=== PATIENT | female | born 1990 | race Caucasian/White ===

== ENCOUNTER 2016-07-09 15:20 | Emergency (ER) | payer MEDICAID ==
[2016-07-09 15:32] VITALS: TEMP 98.1
--- NOTE | 2016-07-09 15:49 | UCPHY ---
H & P Time Seen by Provider: 07/09/16 15:37 Patient Type: New HPI/ROS: 25-year-old female presents complaining of vaginal cyst on the right for the last several days. She has had 1 before that required drainage. Review of systems As per HPI General no fever no chills no weakness HEENT no eye pain no eye discharge. No eye redness, no sore throat Respiratory no cough, no shortness of breath Cardiac no chest pain, no peripheral edema GI no abdominal pain, no diarrhea, no constipation, no nausea, no vomiting no flank pain, no hematuria, no dysuria Musculoskeletal no myalgias, no joint pain Heme no easy bruising, no easy bleeding Endo no polyuria, no polydipsia Skin positive rashes, no pruritus Neuro no syncope, no dizziness, no headaches Psych is no suicidal ideation, no homicidal ideation Past Medical/Surgical History: A prior vaginal cyst Social History: No alcohol or drug use Smoking Status: Never smoked Physical Exam: 25-year-old female very anxious tearful Alert and oriented in no acute distress nontoxic appearance, afebrile Atraumatic normocephalic Neck no JVD Lungs clear to auscultation, no respiratory distress Heart regular rate and rhythm Extremities no cyanosis clubbing edema External genitalia Large right labial abscess, tender to palpation, fluctuant Constitutional: Initial Vital Signs Temperature (C) 36.7 C 07/09/16 15:30 Heart Rate 96 07/09/16 15:30 Respiratory Rate 18 07/09/16 15:30 Blood Pressure 103/55 L 07/09/16 15:30 O2 Sat (%) 100 07/09/16 15:30 O2 Delivery Mode Room Air Allergies/Adverse Reactions: No Known Allergies Allergy (Unverified 07/09/16 15:30) Home Medications: Medication Instructions Recorded Aviane-28 Tablet 07/09/16 Clindamycin 300 mg PO Q8 #18 cap 07/09/16 Ondansetron Odt [Zofran Odt 4 mg 4 mg PO Q4 PRN #10 tab 07/09/16 (*)] oxyCODONE/APAP 5/325 [Percocet 1 - 2 tab PO Q12H PRN #12 tab 07/09/16 5/325 (*)] Medical Decision Making Procedures: Abscess-procedure note The patient gave verbal consent for drainage of a subcutaneous abscess. Risk of bleeding and pain were explained to the patient. The most fluctuant aspect of the abscess was identified. Local anesthetic lidocaine 1% was used. A scalpel was used to incise the abscess. 30 mL of purulent drainage was expressed. Abscess was irrigated and packed. The patient tolerated procedure well. ED Course/Re-evaluation: Patient seen and evaluated for right labial abscess Patient was extremely anxious initially sobbing and was given diazepam 10 mg p. o. to help her calm down she was then given Percocet 2 p.o. for pain, after approximately 90 minutes she was able to calm down and we were able to perform the procedure. Impression Right labial abscess, bartholins abscess Plan Incision and drainage Wound culture sent Patient started on clindamycin Patient to follow up with gynecology on Monday of next week - Data Points Medications Given: Discontinued Medications Clindamycin (Clindamycin) 300 mg PO EDNOW ONE PRN Reason: Protocol Stop: 07/09/16 18:37 Last Admin: 07/09/16 18:44 Dose: Not Given Clindamycin (Cleocin 150 Mg Prepack#6) 1 btl TAKEHOME EDNOW ONE PRN Reason: Protocol Stop: 07/09/16 18:43 Last Admin: 07/09/16 18:57 Dose: 1 btl Diazepam (Valium) 10 mg PO EDNOW ONE Stop: 07/09/16 16:00 Last Admin: 07/09/16 16:03 Dose: 10 mg Ibuprofen (Motrin) 400 mg PO EDNOW ONE Stop: 07/09/16 16:01 Last Admin: 07/09/16 16:04 Dose: 400 mg Ondansetron HCl (Zofran Odt) 4 mg PO EDNOW ONE Stop: 07/09/16 17:11 Last Admin: 07/09/16 17:12 Dose: 4 mg Ondansetron HCl (Zofran Odt 4 Mg Prepack#2) 1 btl TAKEHOME EDNOW ONE Stop: 07/09/16 18:50 Last Admin: 07/09/16 18:58 Dose: 1 btl Oxycodone/Acetaminophen (Percocet 5/325) 2 tab PO EDNOW ONE Stop: 07/09/16 17:11 Last Admin: 07/09/16 17:12 Dose: 2 tab Oxycodone/Acetaminophen (Percocet 5/325mg Prepack#4) 1 btl TAKEHOME EDNOW ONE Stop: 07/09/16 18:44 Last Admin: 07/09/16 18:58 Dose: 1 btl Tetracaine/Epinephrine/Lidocaine (Lets Soln Topical) 1 ea TP EDNOW ONE Stop: 07/09/16 16:52 Last Admin: 07/09/16 16:50 Dose: 1 ea Tetracaine/Epinephrine/Lidocaine (Lets Soln Topical) 1 ea TP EDNOW ONE Stop: 07/09/16 17:06 Last Admin: 07/09/16 17:08 Dose: 1 ea Departure - Departure Disposition: Home, Routine, Self-Care Clinical Impression: Bartholin's gland abscess Condition: Good Instructions: Clindamycin (By mouth), Oxycodone/Acetaminophen (By mouth), Ondansetron (By mouth), Incision and Drainage (ED) Referrals: [facility] [Other] - As per Instructions Prescriptions: Clindamycin 300 mg PO Q8 #18 cap Ondansetron Odt [Zofran Odt 4 mg (*)] 4 mg PO Q4 PRN #10 tab PRN Reason: Nausea/Vomiting, Use 1st oxyCODONE/APAP 5/325 [Percocet 5/325 (*)] 1 - 2 tab PO Q12H PRN #12 tab PRN Reason: Pain, Severe - PQRS PQRS Measurement: na
[2016-07-09] MEDS ORDERED: DIAZEPAM 5 MG TAB ONE (15:58)
[2016-07-09] MEDS ORDERED: IBUPROFEN 200 MG TAB PO ONE ×2 (15:58→16:00)
[2016-07-09] MEDS ORDERED: DIAZEPAM 10 MG TAB PO ONE (15:59)
[2016-07-09] MEDS ORDERED: LETS SOLN TOPICAL 1 EA SYR TP ONE ×3 (16:48→17:05)
[2016-07-09] MEDS ORDERED: OXYCODONE/APAP 5/325 TAB ONE (17:07)
[2016-07-09] MEDS ORDERED: ONDANSETRON DISINTEGRATING 4 MG TAB ONE (17:07)
[2016-07-09] MEDS ORDERED: OXYCODONE/APAP 5/325 TAB PO ONE (17:10)
[2016-07-09] MEDS ORDERED: ONDANSETRON DISINTEGRATING 4 MG TAB PO ONE (17:10)
[2016-07-09] MEDS ORDERED: CLINDAMYCIN 150 MG CAP PO ONE (18:36)
[2016-07-09] MEDS ORDERED: CLINDAMYCIN 150MG PREPACK#6 BTL TAKEHOME ONE ×2 (18:41→18:42)
[2016-07-09] MEDS ORDERED: OXYCODONE/APAP 5/325MG PREPACK#4 BTL TAKEHOME ONE (18:43)
[2016-07-09] MEDS ORDERED: ONDANSETRON 4MG PREPACK#2 BTL TAKEHOME ONE (18:49)
[2016-07-09 19:20] VITALS: BP 98/65; PULSE 82; RESP 15; O2SAT 95
== END 2016-07-09 19:20 | disposition home or self-care (01) ==
LOC: CED 15:20
PROC: 0U9LXZZ Drainage of Vestibular Gland, External Approach (ICD-10-PCS; principal; 2016-07-09)
DX: N75.1 Abscess of Bartholin's gland (principal)
CPT/HCPCS: 10061-PO; 99203-PO; G0463-PO

== ENCOUNTER → 2017-10-12 | Outpatient (CLI) | payer MEDICAID | LOC: FIMAGING 07:05 | PROVIDERS: ATTEND Advanced Practice Midwife | DX: R10.9 Unspecified abdominal pain (principal) ==

== ENCOUNTER 2018-08-25 20:56 | Emergency (ER) | payer MEDICAID, OTHER ==
--- NOTE | 2018-08-25 21:09 | EDPHY ---
H & P Stated Complaint: UTI SX FOR PAST 4 DAYS SELF MEDICATINGWITH OTC , NOW THINKS BLOOD IN URINE Time Seen by Provider: 08/25/18 21:09 - Personal History LMP (Females 10-55): 22-28 Days Ago Current Tetanus/Diphtheria Vaccine: Yes Current Tetanus Diphtheria and Acellular Pertussis (TDAP): Yes - Medical/Surgical History Hx Asthma: No Hx Chronic Respiratory Disease: No Hx Diabetes: No Hx Cardiac Disease: No Hx Renal Disease: No Hx Cirrhosis: No Hx Alcoholism: No Hx HIV/AIDS: No Hx Splenectomy or Spleen Trauma: No Other PMH: denies - Social History Smoking Status: Never smoked Constitutional: Initial Vital Signs Temperature (C) 36.9 C 08/25/18 21:01 Heart Rate 73 08/25/18 21:01 Respiratory Rate 18 08/25/18 21:01 Blood Pressure 93/64 L 08/25/18 21:01 O2 Sat (%) 97 08/25/18 21:01 O2 Delivery Mode Room Air Allergies/Adverse Reactions: clindamycin Allergy (Verified 08/25/18 21:04) Home Medications: Medication Instructions Recorded NK [No Known Home Meds] 08/25/18 Medical Decision Making ED Course/Re-evaluation: CHIEF COMPLAINT: Painful and bloody urination HISTORY OF PRESENT ILLNESS: The patient is a 27 y/o female complaining of painful and bloody urination onset 3-4 days ago. She tried using over the counter medications without relief of her symptoms. Today she noticed that her urine was more clear with the last several drops of consisting of blood. No fever, headache, body aches, lightheadedness, chest pain, heart palpitations, shortness of breath, cough, abdominal pain, bowel complaints, numbness, paresthesias. REVIEW OF SYSTEMS: A comprehensive 10 system review of systems is otherwise negative aside from elements mentioned in the history of present illness and medical decision making. PHYSICAL EXAM: HR, BP, O2 Sat, RR. Temp noted General Appearance: Alert, well hydrated, appropriate, and non-toxic appearing. Head: Atraumatic without scalp tenderness or obvious injury Eyes: Pupils equal, round, reactive to light and accommodation, EOMI, no trauma , no injection. Ears: Clear bilaterally, no perforation, normal landmarks Nose: Atraumatic, no rhinorrhea, clear. Throat: There is no erythema or exudates, no lesions, normal tonsils, mucus membranes moist. Neck: Supple, 2+ carotid upstroke, nontender, no lymphadenopathy. Respiratory: No retractions, no distress, no wheezes, and no accessory muscle use. Lungs are clear to auscultation bilaterally. Cardiovascular: Regular rate and rhythm, no murmurs, rubs, or gallops. Bilateral carotid, radial, dorsalis pedis, and posterior tibial pulses intact. Good capillary refill all extremities. Gastrointestinal: Abdomen is soft, nontender, non-distended, no masses, no rebound, no guarding, no peritoneal signs. Musculoskeletal: Normal active ROM of all extremities, atraumatic. Neurological: Alert, appropriate, and interactive. The patient has normal DTRs and non-focal cranial nerves, motor, sensory, and cerebellar exam. Skin: No rashes, good turgor, no nodules on palpation. Past medical history: Denies Past surgical history: Denies Family history: Denies Social history: Lives in [place], single, employed DIAGNOSTICS/PROCEDURES/CRITICAL CARE TIME: Not indicated. DIFFERENTIAL DIAGNOSIS: The differential diagnosis for the patient's painful urination included but was not limited to pyelonephritis, urinary tract infection, viral syndrome, and sepsis. MEDICAL DECISION MAKING: The patient is a 27 y/o female presenting with painful and bloody urination onset 3-4 days ago. She tried using over the counter medications without relief of her symptoms. Today she noticed that her urine was more clear with the last several drops of consisting of blood. She has a normal physical exam. UA ordered. 2156: Reassessed patient and discussed positive UA findings. I have prescribed her Keflex and given the first dose prior to discharge. Return precautions provided; patient is comfortable with this plan. - Data Points Laboratory Results: 08/25/18 21:40 Urine Color YELLOW Urine Appearance HAZY Urine pH 7.0 (5.0-7.5) Ur Specific Recluse 1.012 (1.002-1.030) Urine Protein 1+ H (NEGATIVE) Urine Ketones TRACE H (NEGATIVE) Urine Blood 3+ H (NEGATIVE) Urine Nitrate NEGATIVE (NEGATIVE) Urine Bilirubin NEGATIVE (NEGATIVE) Urine Urobilinogen NEGATIVE EU EU (0.2-1.0) Ur Leukocyte Esterase 3+ H (NEGATIVE) Urine RBC Pending Urine WBC Pending Ur Epithelial Cells Pending Urine Glucose NEGATIVE (NEGATIVE) Departure - Departure Disposition: Home, Routine, Self-Care Clinical Impression: Urinary tract infection Qualifiers: Urinary tract infection type: site unspecified Hematuria presence: without hematuria Qualified Code(s): N39.0 - Urinary tract infection, site not specified Condition: Good Instructions: Urinary Tract Infection in Women (ED) Additional Instructions: 1. Take Keflex as prescribed. 2. Follow-up with your primary doctor within 72 hours. 3. Return to the Emergency Department for fever, worsening pain, flank pain or failure to improve within 72 hours. Referrals: Cuong Young MD [[facility] [place]] - As per Instructions [facility],. [Clinic] - As per Instructions Report Scribed for: Sridhar Saucedo Report Scribed by: Dianna Preston Date of Report: 08/25/18 Time of Report: 21:14
[2018-08-25] MEDS ORDERED: CEPHALEXIN 500 MG CAP PO ONE (21:55)
[2018-08-25 22:08] VITALS: BP 101/64
== END 2018-08-25 22:07 | disposition home or self-care (01) ==
DX: N39.0 Urinary tract infection, site not specified (principal)